=== PATIENT | female | born 1965 | race Caucasian/White ===

== ENCOUNTER 2017-06-04 17:33 | Inpatient (IN) | payer OTHER ==
[2017-06-04] MEDS: SOD CHLORIDE 0.9% 1,000 ML IV ×2 (18:00→20:36)
[2017-06-04 18:16] LABS: ABNORMAL IP MESSAGE 1; ADD MAN DIFF? NO; BASOPHILS % 0.2 % (0.0-2.0); HEMATOCRIT 42.6 % (37.0-47.0); HEMOGLOBIN 14.4 g/dl (12.0-16.0); LYMPHOCYTES # 1.6 10^3/ul (0.8-2.9); LYMPHOCYTES % 8.6 % (15.0-51.0); MEAN CORPUSCULAR HGB CONC 33.8 g/dl (32.0-37.0); MEAN CORPUSCULAR VOLUME 91.6 fl (82.0-101.0); MONOCYTE # 2.2 10^3/ul (0.3-0.9); MONOCYTES % 11.8 % (0.0-11.0); NEUTROPHIL # 14.6 10^3/ul (1.6-7.5); NEUTROPHILS % 79.1 % (39.0-77.0); PLATELET COUNT 330 10^3/UL (140-415); RED BLOOD COUNT 4.65 10^6/ul (4.20-5.40); RED CELL DISTRIBUTION WIDTH 14.9 % (11.5-14.5)
[2017-06-04 18:16] LABS: WHITE BLOOD COUNT 18.5 10^3/ul (4.8-10.8)
[2017-06-04 18:39] LABS: ALANINE AMINOTRANSFERASE 72 IU/L (13-69); ALBUMIN 4.3 g/dl (3.3-4.9); ALBUMIN/GLOBULIN RATIO 1.53; ALKALINE PHOSPHATASE 67 IU/L (42-121); ANION GAP 18 (8-16); ASPARTATE AMINO TRANSFERASE 383 IU/L (15-46); BILIRUBIN,INDIRECT 0.3 mg/dl (0-1.1); BILIRUBIN,TOTAL 0.3 mg/dl (0.2-1.3); BLOOD UREA NITROGEN 26 mg/dl (7-20); CALCIUM 9.7 mg/dl (8.4-10.2); CARBON DIOXIDE 23 mmol/L (21-31); CHLORIDE 110 mmol/L (97-110); CREATININE 1.47 mg/dl (0.44-1.00); GLUCOSE 148 mg/dl (70-220); POTASSIUM 4.6 mmol/L (3.5-5.1); SODIUM 146 mmol/L (135-144); TOTAL PROTEIN 7.1 g/dl (6.1-8.1)
[2017-06-04 18:43] LABS: POSITIVE DIFF @See below
[2017-06-04 18:54] LABS: ACETAMINOPHEN < 10.0 ug/ml (10.0-30.0); ETHANOL < 10.0 mg/dl; SALICYLATE < 1.0 mg/dl (5.0-30.0)
[2017-06-04] MEDS: ONDANSETRON 4 MG INJ IV (19:13)
[2017-06-04 19:19] LABS: COCAINE Negative (NEGATIVE)
[2017-06-04 19:21] LABS: AMPHETAMINE/METHAMPHETAMINE Negative (NEGATIVE); BARBITURATES Negative (NEGATIVE); BENZODIAZEPINES Positive (NEGATIVE); CANNABINOIDS Negative (NEGATIVE); OPIATES Negative (NEGATIVE)
[2017-06-04] MEDS: CLINDAMYCIN 900 MG/D5W (PMX) 50 ML IVPB (20:29)
[2017-06-05] MEDS: SOD CHLORIDE 0.45% 1,000 ML IV ×5 (01:03→20:07)
[2017-06-05] MEDS ORDERED: ONDANSETRON 4 MG INJ IV (01:30)
[2017-06-05] MEDS ORDERED: DOCUSATE SODIUM 100 MG CAP PO (01:30)
[2017-06-05] MEDS ORDERED: VANCOMYCIN IV PER PHARMACY XX (01:30)
[2017-06-05] MEDS ORDERED: MAGNESIUM HYDROXIDE 30ML CUP PO (01:30)
[2017-06-05] MEDS: NACL 0.9% 3 ML SYG IV (01:52)
[2017-06-05] MEDS: VANCOMYCIN 1.5 GM in SOD CHLORIDE 0.9% 250 ML IVPB (03:31)
[2017-06-05 04:41] LABS: ADD UMIC YES; UR ASCORBIC ACID NEGATIVE (NEGATIVE); UR BACTERIA MANY /HPF (NONE SEEN); UR BILIRUBIN (Dip) 1+ mg/dL (NEGATIVE); UR BLOOD (Dip) 2+ mg/dL (NEGATIVE); UR CLARITY TURBID (CLEAR); UR COLOR YELLOW (YELLOW); UR GLUCOSE (Dip) NEGATIVE (NEGATIVE); UR KETONES (Dip) TRACE mg/dL (NEGATIVE); UR LEUKOCYTE ESTERASE (Dip) 2+ Leu/ul (NEGATIVE); UR NITRITE (Dip) NEGATIVE (NEGATIVE); UR RBC 3 /HPF (0-5); UR SPECIFIC GRAVITY (Dip) 1.027 (1.003-1.030); UR TOTAL PROTEIN (Dip) 2+ mg/dl (NEGATIVE); UR UROBILINOGEN (Dip) NEGATIVE (NEGATIVE); UR WBC 18 /HPF (0-5)
[2017-06-05] MEDS ORDERED: LORAZEPAM 0.5 MG TAB PO (09:30)
[2017-06-05] MEDS: HALOPERIDOL 5 MG INJ IM (10:09)
[2017-06-05] MEDS: CEFTRIAXONE 1 GM/50 ML (PMX) 50 ML IVPB (10:09)
[2017-06-05] MEDS: DIPHENHYDRAMINE 50 MG INJ IV ×2 (10:09→23:53)
[2017-06-05] MEDS: LORAZEPAM 2 MG INJ IV ×2 (12:30→16:43)
[2017-06-06] MEDS: SOD CHLORIDE 0.45% 1,000 ML IV ×2 (03:21→16:58)
[2017-06-06] MEDS: VANCOMYCIN 1 GM in 250 ML IVPB ×2 (03:24→16:58)
[2017-06-06] MEDS ORDERED: PENDING SANTYL ORDER FOR WOUND CARE XX (04:00)
[2017-06-06 06:51] LABS: ADD MAN DIFF? NO
[2017-06-06 07:03] LABS: BASOPHILS % 0.2 % (0.0-2.0); EOSINOPHILS # 0.1 10^3/ul (0.0-0.5); EOSINOPHILS % 0.4 % (0.0-7.0); HEMATOCRIT 36.6 % (37.0-47.0); HEMOGLOBIN 12.5 g/dl (12.0-16.0); LYMPHOCYTES # 2.3 10^3/ul (0.8-2.9); LYMPHOCYTES % 16.5 % (15.0-51.0); MEAN CORPUSCULAR HEMOGLOBIN 31.3 pg (29.0-33.0); MEAN CORPUSCULAR HGB CONC 34.2 g/dl (32.0-37.0); MEAN CORPUSCULAR VOLUME 91.7 fl (82.0-101.0); MEAN PLATELET VOLUME 10.3 fl (7.4-10.4); MONOCYTE # 1.2 10^3/ul (0.3-0.9); NEUTROPHIL # 10.1 10^3/ul (1.6-7.5); NEUTROPHILS % 73.5 % (39.0-77.0); PLATELET COUNT 298 10^3/UL (140-415); RED BLOOD COUNT 3.99 10^6/ul (4.20-5.40)
[2017-06-06 07:03] LABS: WHITE BLOOD COUNT 13.8 10^3/ul (4.8-10.8)
[2017-06-06 07:16] LABS: ALANINE AMINOTRANSFERASE 144 IU/L (13-69); ALKALINE PHOSPHATASE 72 IU/L (42-121); ASPARTATE AMINO TRANSFERASE 605 IU/L (15-46); BILIRUBIN,INDIRECT 0.5 mg/dl (0-1.1); BILIRUBIN,TOTAL 0.5 mg/dl (0.2-1.3); TOTAL PROTEIN 5.3 g/dl (6.1-8.1)
[2017-06-06 07:20] LABS: ANION GAP 12 (8-16); BLOOD UREA NITROGEN 16 mg/dl (7-20); CALCIUM 8.8 mg/dl (8.4-10.2); CARBON DIOXIDE 24 mmol/L (21-31); CHLORIDE 110 mmol/L (97-110); CREATININE 0.79 mg/dl (0.44-1.00); GLUCOSE 78 mg/dl (70-220); MAGNESIUM 2.3 mg/dl (1.7-2.5); POTASSIUM 4.3 mmol/L (3.5-5.1); SODIUM 142 mmol/L (135-144)
[2017-06-06] MEDS: CEFTRIAXONE 1 GM/50 ML (PMX) 50 ML IVPB (09:35)
[2017-06-07 03:24] LABS: ADD MAN DIFF? NO
[2017-06-07 03:26] LABS: WHITE BLOOD COUNT 12.2 10^3/ul (4.8-10.8)
[2017-06-07 03:26] LABS: BASOPHILS % 0.2 % (0.0-2.0); EOSINOPHILS # 0.1 10^3/ul (0.0-0.5); EOSINOPHILS % 1.2 % (0.0-7.0); HEMATOCRIT 35.5 % (37.0-47.0); HEMOGLOBIN 12.1 g/dl (12.0-16.0); LYMPHOCYTES # 2.5 10^3/ul (0.8-2.9); LYMPHOCYTES % 20.2 % (15.0-51.0); MEAN CORPUSCULAR HEMOGLOBIN 31.3 pg (29.0-33.0); MEAN CORPUSCULAR HGB CONC 34.1 g/dl (32.0-37.0); MEAN PLATELET VOLUME 9.7 fl (7.4-10.4); MONOCYTE # 1.4 10^3/ul (0.3-0.9); MONOCYTES % 11.8 % (0.0-11.0); NEUTROPHIL # 8.1 10^3/ul (1.6-7.5); NEUTROPHILS % 66.3 % (39.0-77.0); PLATELET COUNT 361 10^3/UL (140-415); RED BLOOD COUNT 3.86 10^6/ul (4.20-5.40); RED CELL DISTRIBUTION WIDTH 13.8 % (11.5-14.5)
[2017-06-07 03:53] LABS: ALANINE AMINOTRANSFERASE 149 IU/L (13-69); ALBUMIN 3.3 g/dl (3.3-4.9); ALBUMIN/GLOBULIN RATIO 1.13; ALKALINE PHOSPHATASE 65 IU/L (42-121); ANION GAP 12 (8-16); ASPARTATE AMINO TRANSFERASE 458 IU/L (15-46); BILIRUBIN,INDIRECT 0.2 mg/dl (0-1.1); BILIRUBIN,TOTAL 0.2 mg/dl (0.2-1.3); BLOOD UREA NITROGEN 9 mg/dl (7-20); CALCIUM 8.7 mg/dl (8.4-10.2); CARBON DIOXIDE 25 mmol/L (21-31); CHLORIDE 110 mmol/L (97-110); CREATININE 0.68 mg/dl (0.44-1.00); GLUCOSE 114 mg/dl (70-220); POTASSIUM 4.2 mmol/L (3.5-5.1); SODIUM 143 mmol/L (135-144); TOTAL PROTEIN 6.2 g/dl (6.1-8.1)
[2017-06-07 03:54] LABS: PHOSPHORUS 3.4 mg/dl (2.5-4.9)
[2017-06-07 03:54] LABS: CHOL/HDL RATIO 3.7 RATIO; CHOLESTEROL 132 mg/dl (100-200); HDL CHOLESTEROL 35 mg/dl (37-92); LDL CHOLESTEROL,CALCULATED 74 mg/dl; MAGNESIUM 2.2 mg/dl (1.7-2.5); TRIGLYCERIDES 113 mg/dl (0-149)
[2017-06-07 03:59] LABS: HEMOGLOBIN A1C 5.4 % (0-5.9)
[2017-06-07 04:07] LABS: VANCOMYCIN,TROUGH < 5.0 ug/ml (10.0-20.0)
[2017-06-07] MEDS: VANCOMYCIN 1 GM in 250 ML IVPB (04:23)
[2017-06-07] MEDS: CEFTRIAXONE 1 GM/50 ML (PMX) 50 ML IVPB (09:20)
[2017-06-07] MEDS: VANCOMYCIN 750 MG in DEXTROSE 5% 150 ML IVPB ×2 (12:42→20:10)
[2017-06-07] MEDS: ACETAMINOPHEN 325 MG TAB PO (16:33)
[2017-06-07] MEDS: RISPERIDONE 1 MG TAB PO (20:10)
[2017-06-07] MEDS: SILVER SULFADIAZINE 1% 25 GM CR TOP (23:21)
[2017-06-08] MEDS: VANCOMYCIN 750 MG in DEXTROSE 5% 150 ML IVPB ×3 (05:20→21:37)
[2017-06-08 05:49] LABS: ADD MAN DIFF? NO
[2017-06-08 05:54] LABS: BASOPHIL # 0.1 10^3/ul (0.0-0.1); BASOPHILS % 0.6 % (0.0-2.0); EOSINOPHILS # 0.4 10^3/ul (0.0-0.5); EOSINOPHILS % 3.2 % (0.0-7.0); HEMATOCRIT 36.2 % (37.0-47.0); HEMOGLOBIN 12.2 g/dl (12.0-16.0); LYMPHOCYTES # 3.5 10^3/ul (0.8-2.9); LYMPHOCYTES % 31.9 % (15.0-51.0); MEAN CORPUSCULAR HEMOGLOBIN 31.1 pg (29.0-33.0); MEAN CORPUSCULAR HGB CONC 33.7 g/dl (32.0-37.0); MEAN CORPUSCULAR VOLUME 92.3 fl (82.0-101.0); MEAN PLATELET VOLUME 9.6 fl (7.4-10.4); MONOCYTE # 1.3 10^3/ul (0.3-0.9); MONOCYTES % 11.9 % (0.0-11.0); NEUTROPHIL # 5.7 10^3/ul (1.6-7.5); NEUTROPHILS % 51.8 % (39.0-77.0); PLATELET COUNT 422 10^3/UL (140-415); RED BLOOD COUNT 3.92 10^6/ul (4.20-5.40); RED CELL DISTRIBUTION WIDTH 13.7 % (11.5-14.5)
[2017-06-08 06:23] LABS: ALANINE AMINOTRANSFERASE 149 IU/L (13-69); ALKALINE PHOSPHATASE 60 IU/L (42-121); ANION GAP 13 (8-16); ASPARTATE AMINO TRANSFERASE 276 IU/L (15-46); BILIRUBIN,INDIRECT 0.3 mg/dl (0-1.1); BILIRUBIN,TOTAL 0.3 mg/dl (0.2-1.3); BLOOD UREA NITROGEN 7 mg/dl (7-20); CARBON DIOXIDE 26 mmol/L (21-31); CHLORIDE 109 mmol/L (97-110); CREATININE 0.64 mg/dl (0.44-1.00); GLUCOSE 99 mg/dl (70-220); POTASSIUM 4.4 mmol/L (3.5-5.1); SODIUM 144 mmol/L (135-144); TOTAL PROTEIN 5.5 g/dl (6.1-8.1)
[2017-06-08 06:32] LABS: PHOSPHORUS 4.3 mg/dl (2.5-4.9)
[2017-06-08 06:32] LABS: MAGNESIUM 2.1 mg/dl (1.7-2.5)
[2017-06-08] MEDS: RISPERIDONE 1 MG TAB PO ×2 (09:07→21:37)
[2017-06-08] MEDS: CEFTRIAXONE 1 GM/50 ML (PMX) 50 ML IVPB (09:08)
[2017-06-08 11:50] LABS: VANCOMYCIN,TROUGH 11.2 ug/ml (10.0-20.0)
[2017-06-08] MEDS: ENOXAPARIN 40 MG/0.4 ML SYG SC (16:58)
[2017-06-08] MEDS: SILVER SULFADIAZINE 1% 25 GM CR TOP (21:44)
[2017-06-09] MEDS: HALOPERIDOL 5 MG INJ IM (02:33)
[2017-06-09] MEDS: VANCOMYCIN 750 MG in DEXTROSE 5% 150 ML IVPB ×3 (04:43→20:37)
[2017-06-09 06:36] LABS: ADD MAN DIFF? NO
[2017-06-09 06:45] LABS: WHITE BLOOD COUNT 11.5 10^3/ul (4.8-10.8)
[2017-06-09 06:45] LABS: BASOPHILS % 0.3 % (0.0-2.0); EOSINOPHILS # 0.4 10^3/ul (0.0-0.5); EOSINOPHILS % 3.6 % (0.0-7.0); HEMATOCRIT 35.7 % (37.0-47.0); HEMOGLOBIN 12.2 g/dl (12.0-16.0); LYMPHOCYTES # 3.4 10^3/ul (0.8-2.9); LYMPHOCYTES % 29.6 % (15.0-51.0); MEAN CORPUSCULAR HEMOGLOBIN 31.3 pg (29.0-33.0); MEAN CORPUSCULAR HGB CONC 34.2 g/dl (32.0-37.0); MEAN CORPUSCULAR VOLUME 91.5 fl (82.0-101.0); MEAN PLATELET VOLUME 9.5 fl (7.4-10.4); MONOCYTES % 8.7 % (0.0-11.0); NEUTROPHIL # 6.6 10^3/ul (1.6-7.5); NEUTROPHILS % 57.3 % (39.0-77.0); PLATELET COUNT 437 10^3/UL (140-415); RED CELL DISTRIBUTION WIDTH 13.5 % (11.5-14.5)
[2017-06-09 07:07] LABS: ALANINE AMINOTRANSFERASE 134 IU/L (13-69); ALBUMIN 3.3 g/dl (3.3-4.9); ALBUMIN/GLOBULIN RATIO 1.13; ALKALINE PHOSPHATASE 62 IU/L (42-121); ANION GAP 12 (8-16); ASPARTATE AMINO TRANSFERASE 166 IU/L (15-46); BILIRUBIN,INDIRECT 0.2 mg/dl (0-1.1); BILIRUBIN,TOTAL 0.2 mg/dl (0.2-1.3); BLOOD UREA NITROGEN 9 mg/dl (7-20); CALCIUM 8.9 mg/dl (8.4-10.2); CARBON DIOXIDE 28 mmol/L (21-31); CHLORIDE 106 mmol/L (97-110); CREATININE 0.65 mg/dl (0.44-1.00); GLUCOSE 108 mg/dl (70-220); POTASSIUM 3.7 mmol/L (3.5-5.1); SODIUM 142 mmol/L (135-144); TOTAL PROTEIN 6.2 g/dl (6.1-8.1)
[2017-06-09] MEDS: RISPERIDONE 1 MG TAB PO ×2 (08:54→20:37)
[2017-06-09] MEDS: CEFTRIAXONE 1 GM/50 ML (PMX) 50 ML IVPB (08:54)
[2017-06-09] MEDS: SILVER SULFADIAZINE 1% 25 GM CR TOP (09:00)
[2017-06-09] MEDS: ENOXAPARIN 40 MG/0.4 ML SYG SC (09:13)
[2017-06-09 09:57] LABS: MAGNESIUM 2.1 mg/dl (1.7-2.5)
[2017-06-10] MEDS: LORAZEPAM 2 MG INJ IV (00:07)
[2017-06-10] MEDS: VANCOMYCIN 750 MG in DEXTROSE 5% 150 ML IVPB ×3 (04:25→20:26)
[2017-06-10] MEDS: CEFTRIAXONE 1 GM/50 ML (PMX) 50 ML IVPB (08:27)
[2017-06-10] MEDS: RISPERIDONE 1 MG TAB PO ×2 (08:49→21:44)
[2017-06-10] MEDS: ENOXAPARIN 40 MG/0.4 ML SYG SC (08:57)
[2017-06-10] MEDS: SILVER SULFADIAZINE 1% 25 GM CR TOP (09:00)
[2017-06-10] MEDS: ALPRAZOLAM 1 MG TAB PO (12:34)
[2017-06-11] MEDS: VANCOMYCIN 750 MG in DEXTROSE 5% 150 ML IVPB ×3 (03:19→20:20)
[2017-06-11] MEDS: ALPRAZOLAM 1 MG TAB PO ×3 (03:19→20:20)
[2017-06-11 06:15] LABS: ADD MAN DIFF? NO
[2017-06-11 06:40] LABS: ANION GAP 14 (8-16); BLOOD UREA NITROGEN 8 mg/dl (7-20); CALCIUM 9.2 mg/dl (8.4-10.2); CARBON DIOXIDE 27 mmol/L (21-31); CHLORIDE 102 mmol/L (97-110); CREATININE 0.66 mg/dl (0.44-1.00); GLUCOSE 110 mg/dl (70-220); POTASSIUM 4.3 mmol/L (3.5-5.1); SODIUM 139 mmol/L (135-144)
[2017-06-11 06:52] LABS: PHOSPHORUS 5.2 mg/dl (2.5-4.9)
[2017-06-11 06:52] LABS: MAGNESIUM 1.9 mg/dl (1.7-2.5)
[2017-06-11 07:29] LABS: WHITE BLOOD COUNT 18.3 10^3/ul (4.8-10.8)
[2017-06-11 07:29] LABS: ABNORMAL IP MESSAGE 1; BASOPHIL # 0.1 10^3/ul (0.0-0.1); BASOPHILS % 0.3 % (0.0-2.0); EOSINOPHILS # 0.3 10^3/ul (0.0-0.5); EOSINOPHILS % 1.4 % (0.0-7.0); HEMATOCRIT 38.9 % (37.0-47.0); LYMPHOCYTES % 16.4 % (15.0-51.0); MEAN CORPUSCULAR HGB CONC 33.4 g/dl (32.0-37.0); MEAN CORPUSCULAR VOLUME 92.6 fl (82.0-101.0); MEAN PLATELET VOLUME 9.6 fl (7.4-10.4); MONOCYTE # 1.6 10^3/ul (0.3-0.9); MONOCYTES % 8.9 % (0.0-11.0); NEUTROPHIL # 13.1 10^3/ul (1.6-7.5); NEUTROPHILS % 71.8 % (39.0-77.0); PLATELET COUNT 539 10^3/UL (140-415); RED CELL DISTRIBUTION WIDTH 13.9 % (11.5-14.5)
[2017-06-11 07:31] LABS: POSITIVE DIFF @See below
[2017-06-11] MEDS: RISPERIDONE 1 MG TAB PO ×2 (08:30→20:20)
[2017-06-11] MEDS: ENOXAPARIN 40 MG/0.4 ML SYG SC (08:32)
[2017-06-11] MEDS: SILVER SULFADIAZINE 1% 25 GM CR TOP (09:24)
[2017-06-11] MEDS: CEFTRIAXONE 1 GM/50 ML (PMX) 50 ML IVPB (09:24)
[2017-06-11] MEDS: ACETAMINOPHEN 325 MG TAB PO (14:22)
[2017-06-12] MEDS: VANCOMYCIN 750 MG in DEXTROSE 5% 150 ML IVPB ×3 (03:15→20:14)
[2017-06-12] MEDS: ALPRAZOLAM 1 MG TAB PO ×2 (05:43→20:14)
[2017-06-12 06:02] LABS: ADD MAN DIFF? NO
[2017-06-12 06:05] LABS: ABNORMAL IP MESSAGE 1; BASOPHIL # 0.1 10^3/ul (0.0-0.1); BASOPHILS % 0.3 % (0.0-2.0); EOSINOPHILS # 0.3 10^3/ul (0.0-0.5); EOSINOPHILS % 1.6 % (0.0-7.0); HEMATOCRIT 38.9 % (37.0-47.0); HEMOGLOBIN 13.2 g/dl (12.0-16.0); LYMPHOCYTES # 2.9 10^3/ul (0.8-2.9); LYMPHOCYTES % 15.5 % (15.0-51.0); MEAN CORPUSCULAR HGB CONC 33.9 g/dl (32.0-37.0); MEAN CORPUSCULAR VOLUME 91.3 fl (82.0-101.0); MEAN PLATELET VOLUME 9.6 fl (7.4-10.4); MONOCYTE # 1.7 10^3/ul (0.3-0.9); NEUTROPHIL # 13.7 10^3/ul (1.6-7.5); NEUTROPHILS % 72.7 % (39.0-77.0); PLATELET COUNT 513 10^3/UL (140-415); RED BLOOD COUNT 4.26 10^6/ul (4.20-5.40); RED CELL DISTRIBUTION WIDTH 13.5 % (11.5-14.5)
[2017-06-12 06:05] LABS: WHITE BLOOD COUNT 18.9 10^3/ul (4.8-10.8)
[2017-06-12 06:16] LABS: POSITIVE DIFF @See below
[2017-06-12] MEDS: RISPERIDONE 1 MG TAB PO ×2 (08:07→20:14)
[2017-06-12] MEDS: ENOXAPARIN 40 MG/0.4 ML SYG SC (08:08)
[2017-06-12] MEDS: SILVER SULFADIAZINE 1% 25 GM CR TOP (08:12)
[2017-06-12] MEDS: CEFTRIAXONE 1 GM/50 ML (PMX) 50 ML IVPB (08:49)
[2017-06-12 19:44] LABS: VANCOMYCIN,TROUGH 10.1 ug/ml (10.0-20.0)
[2017-06-13] MEDS: VANCOMYCIN 750 MG in DEXTROSE 5% 150 ML IVPB ×3 (04:16→20:37)
[2017-06-13 05:45] LABS: ADD MAN DIFF? NO
[2017-06-13] MEDS: ALPRAZOLAM 1 MG TAB PO ×3 (06:02→22:36)
[2017-06-13 06:08] LABS: BASOPHIL # 0.1 10^3/ul (0.0-0.1); BASOPHILS % 0.3 % (0.0-2.0); EOSINOPHILS # 0.4 10^3/ul (0.0-0.5); EOSINOPHILS % 2.6 % (0.0-7.0); HEMATOCRIT 38.7 % (37.0-47.0); HEMOGLOBIN 12.9 g/dl (12.0-16.0); LYMPHOCYTES # 3.8 10^3/ul (0.8-2.9); LYMPHOCYTES % 25.8 % (15.0-51.0); MEAN CORPUSCULAR HEMOGLOBIN 30.9 pg (29.0-33.0); MEAN CORPUSCULAR HGB CONC 33.3 g/dl (32.0-37.0); MEAN CORPUSCULAR VOLUME 92.8 fl (82.0-101.0); MEAN PLATELET VOLUME 9.5 fl (7.4-10.4); MONOCYTE # 1.2 10^3/ul (0.3-0.9); MONOCYTES % 8.3 % (0.0-11.0); NEUTROPHIL # 9.2 10^3/ul (1.6-7.5); NEUTROPHILS % 62.1 % (39.0-77.0); PLATELET COUNT 593 10^3/UL (140-415); RED BLOOD COUNT 4.17 10^6/ul (4.20-5.40); RED CELL DISTRIBUTION WIDTH 13.2 % (11.5-14.5)
[2017-06-13 06:08] LABS: WHITE BLOOD COUNT 14.8 10^3/ul (4.8-10.8)
[2017-06-13 06:32] LABS: PHOSPHORUS 5.9 mg/dl (2.5-4.9)
[2017-06-13 06:32] LABS: MAGNESIUM 1.9 mg/dl (1.7-2.5)
[2017-06-13 06:33] LABS: ANION GAP 17 (8-16); BLOOD UREA NITROGEN 6 mg/dl (7-20); CALCIUM 9.8 mg/dl (8.4-10.2); CARBON DIOXIDE 27 mmol/L (21-31); CHLORIDE 100 mmol/L (97-110); CREATININE 0.62 mg/dl (0.44-1.00); GLUCOSE 118 mg/dl (70-220); SODIUM 140 mmol/L (135-144)
[2017-06-13] MEDS: RISPERIDONE 1 MG TAB PO ×2 (09:27→20:36)
[2017-06-13] MEDS: CEFTRIAXONE 1 GM/50 ML (PMX) 50 ML IVPB (09:28)
[2017-06-13] MEDS: SILVER SULFADIAZINE 1% 25 GM CR TOP (09:45)
[2017-06-13] MEDS: ENOXAPARIN 40 MG/0.4 ML SYG SC (09:45)
[2017-06-14] MEDS: VANCOMYCIN 750 MG in DEXTROSE 5% 150 ML IVPB ×3 (04:19→20:28)
[2017-06-14 06:31] LABS: ALANINE AMINOTRANSFERASE 80 IU/L (13-69); ALBUMIN 3.4 g/dl (3.3-4.9); ALBUMIN/GLOBULIN RATIO 1.13; ALKALINE PHOSPHATASE 94 IU/L (42-121); ASPARTATE AMINO TRANSFERASE 45 IU/L (15-46); BLOOD UREA NITROGEN 8 mg/dl (7-20); CARBON DIOXIDE 26 mmol/L (21-31); CHLORIDE 102 mmol/L (97-110); CREATININE 0.61 mg/dl (0.44-1.00); GLUCOSE 116 mg/dl (70-220); SODIUM 140 mmol/L (135-144); TOTAL PROTEIN 6.4 g/dl (6.1-8.1)
[2017-06-14 07:04] LABS: ANION GAP 16 (8-16)
[2017-06-14] MEDS: CEFTRIAXONE 1 GM/50 ML (PMX) 50 ML IVPB (09:06)
[2017-06-14] MEDS: RISPERIDONE 1 MG TAB PO ×2 (09:06→20:28)
[2017-06-14] MEDS: ENOXAPARIN 40 MG/0.4 ML SYG SC (09:08)
[2017-06-14] MEDS: SILVER SULFADIAZINE 1% 25 GM CR TOP (09:28)
[2017-06-14 15:10] LABS: ADD MAN DIFF? NO
[2017-06-14 15:11] LABS: WHITE BLOOD COUNT 14.5 10^3/ul (4.8-10.8)
[2017-06-14 15:11] LABS: BASOPHIL # 0.1 10^3/ul (0.0-0.1); BASOPHILS % 0.4 % (0.0-2.0); EOSINOPHILS # 0.3 10^3/ul (0.0-0.5); EOSINOPHILS % 2.2 % (0.0-7.0); HEMOGLOBIN 12.1 g/dl (12.0-16.0); LYMPHOCYTES # 2.9 10^3/ul (0.8-2.9); MEAN CORPUSCULAR HEMOGLOBIN 31.1 pg (29.0-33.0); MEAN CORPUSCULAR HGB CONC 33.6 g/dl (32.0-37.0); MEAN CORPUSCULAR VOLUME 92.5 fl (82.0-101.0); MEAN PLATELET VOLUME 9.1 fl (7.4-10.4); MONOCYTE # 1.3 10^3/ul (0.3-0.9); MONOCYTES % 8.6 % (0.0-11.0); NEUTROPHIL # 9.9 10^3/ul (1.6-7.5); NEUTROPHILS % 68.4 % (39.0-77.0); PLATELET COUNT 560 10^3/UL (140-415); RED BLOOD COUNT 3.89 10^6/ul (4.20-5.40); RED CELL DISTRIBUTION WIDTH 13.2 % (11.5-14.5)
[2017-06-14 15:41] LABS: ANION GAP 17 (8-16); BLOOD UREA NITROGEN 5 mg/dl (7-20); CARBON DIOXIDE 25 mmol/L (21-31); CHLORIDE 103 mmol/L (97-110); CREATININE 0.52 mg/dl (0.44-1.00); GLUCOSE 136 mg/dl (70-220); POTASSIUM 3.7 mmol/L (3.5-5.1); SODIUM 141 mmol/L (135-144)
[2017-06-14] MEDS: ALPRAZOLAM 1 MG TAB PO (16:33)
[2017-06-15] MEDS: ALPRAZOLAM 1 MG TAB PO (00:14)
[2017-06-15] MEDS: VANCOMYCIN 750 MG in DEXTROSE 5% 150 ML IVPB ×2 (03:47→13:04)
[2017-06-15 06:01] LABS: ADD MAN DIFF? NO
[2017-06-15 06:02] LABS: BASOPHIL # 0.1 10^3/ul (0.0-0.1); BASOPHILS % 0.4 % (0.0-2.0); EOSINOPHILS # 0.4 10^3/ul (0.0-0.5); EOSINOPHILS % 2.4 % (0.0-7.0); HEMATOCRIT 38.3 % (37.0-47.0); HEMOGLOBIN 12.7 g/dl (12.0-16.0); LYMPHOCYTES # 3.1 10^3/ul (0.8-2.9); LYMPHOCYTES % 19.6 % (15.0-51.0); MEAN CORPUSCULAR HEMOGLOBIN 31.2 pg (29.0-33.0); MEAN CORPUSCULAR HGB CONC 33.2 g/dl (32.0-37.0); MEAN CORPUSCULAR VOLUME 94.1 fl (82.0-101.0); MEAN PLATELET VOLUME 9.2 fl (7.4-10.4); MONOCYTES % 6.2 % (0.0-11.0); NEUTROPHIL # 11.1 10^3/ul (1.6-7.5); NEUTROPHILS % 70.8 % (39.0-77.0); PLATELET COUNT 600 10^3/UL (140-415); RED BLOOD COUNT 4.07 10^6/ul (4.20-5.40); RED CELL DISTRIBUTION WIDTH 13.3 % (11.5-14.5)
[2017-06-15 06:02] LABS: WHITE BLOOD COUNT 15.6 10^3/ul (4.8-10.8)
[2017-06-15 06:34] LABS: ANION GAP 15 (8-16); BLOOD UREA NITROGEN 3 mg/dl (7-20); CALCIUM 9.4 mg/dl (8.4-10.2); CARBON DIOXIDE 25 mmol/L (21-31); CHLORIDE 107 mmol/L (97-110); GLUCOSE 134 mg/dl (70-220); SODIUM 143 mmol/L (135-144)
[2017-06-15] MEDS: SILVER SULFADIAZINE 1% 25 GM CR TOP (09:14)
[2017-06-15] MEDS: CEFTRIAXONE 1 GM/50 ML (PMX) 50 ML IVPB (09:14)
[2017-06-15] MEDS: RISPERIDONE 1 MG TAB PO (09:14)
[2017-06-15] MEDS: ENOXAPARIN 40 MG/0.4 ML SYG SC (09:16)
== END 2017-06-15 14:15 | disposition home or self-care (01) | DRG 917 ==
LOC: E/R 17:33 → MS4 20:26 → MS2 06-06 23:43
DX: T42.4X2A Poisoning by benzodiazepines, intentional self-harm, initial encounter (principal); G93.49 Other encephalopathy; N17.9 Acute kidney failure, unspecified; N39.0 Urinary tract infection, site not specified; L03.115 Cellulitis of right lower limb
CPT/HCPCS: 36415; 70450; 71045; 73590; 73610; 73610-RT; 73721; 80048; 80053; 80061; 80076; 80202; 80306; 80307; 81001; 82962; 83036; 83735; 84100; 85025; 87086; 96372; 96374; 96375; 96376; 97116; 97161; 97530; 99285-25

== ENCOUNTER 2017-11-16 19:57 | Emergency (ER) | payer SELFPAY, OTHER | END 2017-11-16 21:00 | disposition left against medical advice (07) | LOC: E/R 19:57 | DX: Z53.21 Procedure and treatment not carried out due to patient leaving prior to being seen by health care provider (principal) ==

== ENCOUNTER 2018-03-26 08:46 | Emergency (ER) | payer OTHER ==
[2018-03-26] MEDS: OLANZAPINE (ODT) 5 MG TAB ODT (09:13)
== END 2018-03-26 09:53 | disposition home or self-care (01) ==
LOC: E/R 08:46
DX: F41.9 Anxiety disorder, unspecified (principal); F17.210 Nicotine dependence, cigarettes, uncomplicated
CPT/HCPCS: 99283; Z7502

== ENCOUNTER 2018-03-26 10:52 | Emergency (ER) | payer OTHER | END 2018-03-26 11:17 | disposition home or self-care (01) | LOC: E/R 10:52 | DX: Z76.5 Malingerer [conscious simulation] (principal); F17.210 Nicotine dependence, cigarettes, uncomplicated | CPT/HCPCS: 99283; Z7502 ==

== ENCOUNTER 2018-03-27 07:22 | Emergency (ER) | payer SELFPAY, OTHER | END 2018-03-27 10:03 | disposition left against medical advice (07) | LOC: E/R 07:22 | DX: Z53.21 Procedure and treatment not carried out due to patient leaving prior to being seen by health care provider (principal) ==

== ENCOUNTER 2018-03-29 05:53 | Emergency (ER) | payer OTHER | END 2018-03-29 06:30 | disposition home or self-care (01) | LOC: E/R 05:53 | DX: F41.9 Anxiety disorder, unspecified (principal); R40.2142 Coma scale, eyes open, spontaneous, at arrival to emergency department; R40.2362 Coma scale, best motor response, obeys commands, at arrival to emergency department | CPT/HCPCS: 99283; Z7502 ==

== ENCOUNTER 2018-04-15 01:56 | Emergency (ER) | payer OTHER ==
[2018-04-15 04:07] LABS: ADD UMIC NO; UR ASCORBIC ACID NEGATIVE (NEGATIVE); UR BILIRUBIN (Dip) NEGATIVE (NEGATIVE); UR BLOOD (Dip) NEGATIVE (NEGATIVE); UR CLARITY CLEAR (CLEAR); UR COLOR YELLOW (YELLOW); UR GLUCOSE (Dip) NEGATIVE (NEGATIVE); UR KETONES (Dip) TRACE mg/dL (NEGATIVE); UR LEUKOCYTE ESTERASE (Dip) NEGATIVE Leu/ul (NEGATIVE); UR NITRITE (Dip) NEGATIVE (NEGATIVE); UR SPECIFIC GRAVITY (Dip) 1.008 (1.003-1.030); UR TOTAL PROTEIN (Dip) NEGATIVE (NEGATIVE); UR UROBILINOGEN (Dip) NEGATIVE (NEGATIVE)
[2018-04-15 04:26] LABS: BARBITURATES Negative (NEGATIVE); CANNABINOIDS Negative (NEGATIVE); COCAINE Negative (NEGATIVE); OPIATES Negative (NEGATIVE)
[2018-04-15 04:46] LABS: BENZODIAZEPINES Positive (NEGATIVE)
[2018-04-15 04:53] LABS: AMPHETAMINE/METHAMPHETAMINE Positive (NEGATIVE)
[2018-04-15] MEDS ORDERED: LORAZEPAM 1 MG TAB PO (05:00)
[2018-04-15] MEDS: ASPIRIN 325 MG TAB PO (05:33)
== END 2018-04-15 05:38 | disposition home or self-care (01) ==
LOC: FTE 01:56
DX: F41.1 Generalized anxiety disorder (principal)
CPT/HCPCS: 80307; 81003; 84703; 87591; 93005; 99284-25

== ENCOUNTER 2018-04-16 12:55 | Emergency (ER) | payer OTHER ==
[2018-04-16] MEDS ORDERED: LIDOCAINE 1% (MDV) 10 ML INJ INJ (15:13)
[2018-04-16] MEDS: LIDOCAINE 2% (MDV) 20 ML INJ INJ (16:04)
[2018-04-16] MEDS: ACETAMINOPHEN 650MG/20.3ML CUP PO (16:05)
[2018-04-16] MEDS: DIPHTH/TET/ACEL PERTUSS (ADULT) 0.5 ML VIAL IM* (16:06)
== END 2018-04-16 16:23 | disposition home or self-care (01) ==
LOC: FTE 12:55
DX: S01.01XA Laceration without foreign body of scalp, initial encounter (principal); S06.9X0A Unspecified intracranial injury without loss of consciousness, initial encounter; W01.0XXA Fall on same level from slipping, tripping and stumbling without subsequent striking against object, initial encounter; Y92.22 Religious institution as the place of occurrence of the external cause; Z23 Encounter for immunization
CPT/HCPCS: 12002; 90471; 90715; 99283-25

== ENCOUNTER 2018-04-18 10:09 | Emergency (ER) | payer SELFPAY, OTHER | END 2018-04-18 10:12 | disposition left against medical advice (07) | LOC: E/R 10:09 | DX: Z53.21 Procedure and treatment not carried out due to patient leaving prior to being seen by health care provider (principal) ==

== ENCOUNTER 2018-04-20 08:02 | Emergency (ER) | payer OTHER | END 2018-04-20 08:31 | disposition home or self-care (01) | LOC: FTE 08:02 | DX: Z48.01 Encounter for change or removal of surgical wound dressing (principal) | CPT/HCPCS: 99281 ==

== ENCOUNTER 2018-04-22 06:11 | Emergency (ER) | payer OTHER | END 2018-04-22 08:07 | disposition home or self-care (01) | LOC: FTE 06:11 | DX: Z48.02 Encounter for removal of sutures (principal) | CPT/HCPCS: 99282; Z7502 ==

== ENCOUNTER 2018-04-28 07:06 | Emergency (ER) | payer SELFPAY, OTHER ==
[2018-04-28 07:36] LABS: URINE BLOOD (Dip) POC Negative (NEGATIVE); URINE GLUCOSE (Dip) POC Negative (NEGATIVE); URINE KETONES (Dip) POC 2+ (NEGATIVE); URINE LEUKOCYTE EST (Dip) POC Negative (NEGATIVE); URINE NITRITE (Dip) POC Negative (NEGATIVE); URINE TOTAL PROTEIN POC Negative (NEGATIVE)
[2018-04-28 07:36] LABS: URINE PH (Dip) POC 5.5 (5.0-8.5)
[2018-04-28] MEDS: KETOROLAC 60 MG INJ IM (07:48)
== END 2018-04-28 08:09 | disposition left against medical advice (07) ==
LOC: FTE 08:09
DX: R51 Headache (principal)
CPT/HCPCS: 81003; 81025; 96372; 99285-25

== ENCOUNTER 2018-04-28 08:44 | Emergency (ER) | payer SELFPAY | END 2018-04-28 09:46 | disposition left against medical advice (07) | LOC: E/R 08:44 | DX: Z53.21 Procedure and treatment not carried out due to patient leaving prior to being seen by health care provider (principal) ==

== ENCOUNTER 2018-05-04 12:28 | Emergency (ER) | payer OTHER ==
[2018-05-04 15:03] LABS: ADD MAN DIFF? NO
[2018-05-04 15:05] LABS: BASOPHIL # 0.1 10^3/ul (0.0-0.1); BASOPHILS % 0.5 % (0.0-2.0); EOSINOPHILS # 0.1 10^3/ul (0.0-0.5); EOSINOPHILS % 0.7 % (0.0-7.0); HEMATOCRIT 44.8 % (37.0-47.0); LYMPHOCYTES # 2.5 10^3/ul (0.8-2.9); LYMPHOCYTES % 27.5 % (15.0-51.0); MEAN CORPUSCULAR HEMOGLOBIN 33.2 pg (29.0-33.0); MEAN CORPUSCULAR HGB CONC 33.5 g/dl (32.0-37.0); MEAN CORPUSCULAR VOLUME 99.1 fl (82.0-101.0); MEAN PLATELET VOLUME 9.4 fl (7.4-10.4); MONOCYTE # 0.7 10^3/ul (0.3-0.9); MONOCYTES % 7.4 % (0.0-11.0); NEUTROPHIL # 5.9 10^3/ul (1.6-7.5); NEUTROPHILS % 63.4 % (39.0-77.0); PLATELET COUNT 310 10^3/UL (140-415); RED BLOOD COUNT 4.52 10^6/ul (4.20-5.40); RED CELL DISTRIBUTION WIDTH 12.4 % (11.5-14.5)
[2018-05-04 15:05] LABS: WHITE BLOOD COUNT 9.2 10^3/ul (4.8-10.8)
[2018-05-04 15:13] LABS: ADD UMIC NO; UR ASCORBIC ACID NEGATIVE (NEGATIVE); UR BILIRUBIN (Dip) NEGATIVE (NEGATIVE); UR BLOOD (Dip) NEGATIVE (NEGATIVE); UR CLARITY CLEAR (CLEAR); UR COLOR COLORLESS (YELLOW); UR GLUCOSE (Dip) NEGATIVE (NEGATIVE); UR KETONES (Dip) NEGATIVE (NEGATIVE); UR LEUKOCYTE ESTERASE (Dip) NEGATIVE Leu/ul (NEGATIVE); UR NITRITE (Dip) NEGATIVE (NEGATIVE); UR SPECIFIC GRAVITY (Dip) 1.002 (1.003-1.030); UR TOTAL PROTEIN (Dip) NEGATIVE (NEGATIVE); UR UROBILINOGEN (Dip) NEGATIVE (NEGATIVE)
[2018-05-04 15:28] LABS: ALANINE AMINOTRANSFERASE 29 IU/L (13-69); ALBUMIN 4.6 g/dl (3.3-4.9); ALBUMIN/GLOBULIN RATIO 1.53; ALKALINE PHOSPHATASE 99 IU/L (42-121); ANION GAP 12 (5-13); ASPARTATE AMINO TRANSFERASE 38 IU/L (15-46); BILIRUBIN,INDIRECT 0.2 mg/dl (0-1.1); BILIRUBIN,TOTAL 0.2 mg/dl (0.2-1.3); BLOOD UREA NITROGEN 8 mg/dl (7-20); CALCIUM 9.8 mg/dl (8.4-10.2); CARBON DIOXIDE 25 mmol/L (21-31); CHLORIDE 107 mmol/L (97-110); CREATININE 0.74 mg/dl (0.44-1.00); Estimated GFR > 60 mL/min (>60); GLUCOSE 88 mg/dl (70-220); POTASSIUM 4.3 mmol/L (3.5-5.1); SODIUM 144 mmol/L (135-144); TOTAL PROTEIN 7.6 g/dl (6.1-8.1)
[2018-05-04 15:34] LABS: BARBITURATES Negative (NEGATIVE); BENZODIAZEPINES Positive (NEGATIVE); CANNABINOIDS Negative (NEGATIVE); COCAINE Negative (NEGATIVE); OPIATES Negative (NEGATIVE)
[2018-05-04 15:51] LABS: ACETAMINOPHEN < 10.0 ug/ml (10.0-30.0); ETHANOL < 10.0 mg/dl (0-0); SALICYLATE < 1.0 mg/dl (5.0-30.0)
[2018-05-04 16:33] LABS: AMPHETAMINE/METHAMPHETAMINE POS (NEGATIVE)
== END 2018-05-05 05:33 ==
LOC: E/R 05-05 05:33
DX: F99 Mental disorder, not otherwise specified (principal); F15.10 Other stimulant abuse, uncomplicated; R40.2142 Coma scale, eyes open, spontaneous, at arrival to emergency department; R40.2252 Coma scale, best verbal response, oriented, at arrival to emergency department; R40.2362 Coma scale, best motor response, obeys commands, at arrival to emergency department; F17.210 Nicotine dependence, cigarettes, uncomplicated
CPT/HCPCS: 36415; 80053; 80307; 81003; 84703; 85025; 99285-25

== ENCOUNTER 2018-05-11 07:15 | Emergency (ER) | payer SELFPAY, OTHER | END 2018-05-11 13:25 | disposition left against medical advice (07) | LOC: E/R 07:15 | DX: Z53.21 Procedure and treatment not carried out due to patient leaving prior to being seen by health care provider (principal) ==

== ENCOUNTER 2018-07-06 04:57 | Emergency (ER) | payer SELFPAY, OTHER | END 2018-07-06 07:27 | disposition left against medical advice (07) | LOC: FTE 07:27 | DX: Z53.21 Procedure and treatment not carried out due to patient leaving prior to being seen by health care provider (principal) ==